=== PATIENT | male | born 2000 | race Caucasian/White ===

== ENCOUNTER 2021-12-30 09:45 | Emergency (ER) | payer OTHER, SELFPAY ==
--- NOTE | ~2021-12-30 | CT_ITS ---
EXAMINATION: CT abdomen pelvis w con DATE: 12/30/2021 11:36 INDICATION: Right lower quadrant abdominal pain, nausea and diarrhea. TECHNIQUE: Computed tomography (CT) of the abdomen and pelvis was performed with 100 mL Omnipaque-350 intravenous contrast. Automated exposure control and iterative reconstruction technique were employe d. The dose-length product was 335.05 mGy-cm. COMPARISON: None FINDINGS: Lung bases are clear. Heart size is normal. No pericardial or pleural effusion. Liver, gallbladder, s pleen, pancreas, bilateral adrenal glands and kidneys are normal. Focal wall thickening of the termin al ileum with mucosal hyperemia consistent with likely flare of reported known Crohn's disease. Remai nder of the bowels are unremarkable with no other wall thickening or dilation to suggest obstruction. No abscess or free intraperitoneal gas or fluid. Bladder is normal. No pathologically enlarged abdom inal or pelvic lymphadenopathy. Tiny fat-containing umbilical hernia. Relatively symmetric minimal to mild bilateral sacroiliitis most likely related to Crohn's disease. IMPRESSION: 1. Wall thickening and mucosal hyperemia at the terminal ileum consistent with flare of known Crohn's disease. No obstruction or findings to suggest bowel perforation. 2. Minimal to mild bilateral sacroiliitis likely related to Crohn's disease. Reviewed, dictated and finalized at location A. IMPRESSION: 1. Wall thickening and mucosal hyperemia at the terminal ileum consistent with flare of known Crohn's disease. No obstruction or findings to suggest bowel per foration. 2. Minimal to mild bilateral sacroiliitis likely related to Crohn's disease.
[2021-12-30 09:48] VITALS: BP 125/82; PULSE 98; RESP 17; TEMP 37.4; O2SAT 99
--- NOTE | 2021-12-30 10:15 | ED.GENADULT ---
HPI - General Adult General Chief complaint: Unspecified <VANI Odonnell Last Filed: 12/30/21 19:40> Stated complaint: flu-like symptoms <VANI Odonnell Last Filed: 12/30/21 19:40> Time Seen by Provider: 12/30/21 09:51 <VANI Odonnell Last Filed: 12/30/21 19:40> Source: patient <VANI Odonnell Last Filed: 12/30/21 19:40> Mode of arrival: ambulatory <VANI Odonnell Last Filed: 12/30/21 19:40> Limitations: no limitations <VANI Odonnell Last Filed: 12/30/21 19:40> History of Present Illness HPI narrative: Patient is a 21-year-old male who presents the ED with report of fever. Patient reports having fever for the past 4 days. He states he remembers exactly when he started feeling bad. T-max 101.8 at home. He has been taking Tylenol and ibuprofen with relief of fever. Patient does have history of Crohn's disease and takes Simponi for this. He states he was advised to come to the emergency department by his staffing associate and assistant at surgery. Patient also reports having a sore throat, nausea, diarrhea, lower abdominal pain, chills, sweats, and myalgias. He states he has been unable to eat or drink much. He denies any cough, congestion, rhinorrhea, vomiting, urinary symptoms. Patient is not vaccinated for COVID-19 or influenza. <Jeana Mcwilliams PA-C - Last Filed: 12/30/21 19:40> Related Data Home medications: Home Medications Medication Instructions Recorded Confirmed golimumab 100 mg/mL subcutaneous 50 mg SUB-Q MONTHLY 05/02/20 pen injector golimumab [Simponi] mg SUBCUT 12/30/21 <VANI Odonnell Last Filed: 12/30/21 19:40> Allergies/adverse reactions: Allergies Allergy/AdvReac Type Severity Reaction Status Date / Time infliximab [From Remicade] Allergy Severe andioedema Verified 12/30/21 10:00 <Jeana Mcwilliams PA-C - Last Filed: 12/30/21 19:40> Review of Systems Review of Systems: CONSTITUTIONAL: Reports fever, chills, and sweats. ENT: Reports sore throat. Denies rhinorrhea, congestion, or otalgia. CARDIOVASCULAR: Denies chest pain. RESPIRATORY: Denies cough or dyspnea. GASTROINTESTINAL: Reports lower abdominal pain, nausea, and diarrhea. Denies vomiting. GENITOURINARY: Denies dysuria or hematuria. MUSCULOSKELETAL: Reports myalgia. NEUROLOGIC: Denies headache, numbness, or weakness. <Jeana Mcwilliams PA-C - Last Filed: 12/30/21 19:40> All systems reviewed & are unremarkable except as noted in HPI and below <Jeana Mcwilliams PA-C - Last Filed: 12/30/21 19:40> PMFSH Past Medical History Medical History: Medical History Crohn's disease in remission <Jeana Mcwilliams PA-C - Last Filed: 12/30/21 19:40> Surgical History Surgical History: Surgical History (Updated 12/30/21 @ 10:19 by Jeana Mcwilliams PA-C) No pertinent past surgical history <Jeana Mcwilliams PA-C - Last Filed: 12/30/21 19:40> Family History Family History: Family History (Updated 09/15/19 @ 07:42 by Britta Willis [facility]) Grandparent Hypertension Sleep apnea Family history of CABG AAA (abdominal aortic aneurysm) Aorta disorder Diabetes mellitus Heart disease Leukemia Mother Lymphoma <Jeana Mcwilliams PA-C - Last Filed: 12/30/21 19:40> Social History Social History: Social History Smoking status: Never smoker Alcohol intake: never <Jeana Mcwilliams PA-C - Last Filed: 12/30/21 19:40> Exam Narrative: GENERAL: Mildly ill appearing, well-nourished, non-toxic, in no acute distress. HEAD: Normocephalic, atraumatic. EYES: EOMI, conjunctivae clear bilaterally. NOSE: Normal, no drainage THROAT: Pharynx clear, minimal erythema, no exudate. MMs dry. NECK: Supple. No adenopathy, no masses. RESPIRATORY: Airway patent, respirations nonlabored. Clear to auscultation bilaterally, no rales,
[2021-12-30 10:23] VITALS: RESP 18
[2021-12-30 10:26] LABS: Basophils Percent Auto 0.5 % (0.2-1.2); Hemoglobin 15.5 g/dL (14.0-18.0); Immature Granulocyte Absolute 0.01 K/mm3 (0.00-0.031); Immature Granulocyte Percent A 0.3 % (0-0.5); Lymphocytes Absolute Auto 0.95 K/mm3 (0.9-3.2); Lymphocytes Percent Auto 24.1 % (18.3-44.2); Mean Corpuscular Hemoglobin 29.5 pg (26-34); Mean Corpuscular Volume 89.4 fl (80-100); Mean Platelet Volume 8.9 fl (7.4-10.4); Monocytes Absolute Auto 0.7 K/mm3 (0.1-0.6); Monocytes Percent Auto 18.5 % (2.6-8.5); Neutrophils Absolute Auto 2.2 K/mm3 (1.3-6.7); Neutrophils Percent Auto 56.6 % (45.5-73.1); Platelet Count Result 184 k/mm3 (150-375); Red Blood Count 5.26 M/mm3 (4.6-6.20); Red Cell Distribution Width 12.1 % (11.5-14.5); White Blood Count 3.9 K/mm3 (4.5-10.0)
[2021-12-30] MEDS: SODIUM CHLORIDE 0.9% IV 1,000 ML 999 ML IV CONT ×2 (10:30→11:43)
[2021-12-30] MEDS: ONDANSETRON INJ 4 MG/2 ML VIAL IV PUSH (10:31)
[2021-12-30 10:35] LABS: Appearance Urine Clear (Clear); Bilirubin Urine 1+ (Negative); Blood Urine Negative (Negative); Color Urine Yellow (Yellow); Glucose Urine UA Negative (Negative); Ketones Urine 2+ mg/dL (Negative); Leukocyte Esterase Ur Negative LEU/UL (Negative); Nitrate Urine Negative (Negative); Protein Urine 1+ mg/dL (Negative); Specific Grav Ur >= 1.030 (1.001-1.035); Urobilinogen Urine 0.2 mg/dL (<2.0); pH Urine 5.5 (5.0-9.0)
[2021-12-30 10:38] LABS: Alanine Aminotransferase 18 U/L (4-50); Albumin Level 4.6 g/dL (3.5-5.1); Alkaline Phosphatase 65 U/L (38-126); Anion Gap 10 mmol/L (8-16); Aspartate Amino Transferase 35 U/L (17-59); Bilirubin,Total 0.4 mg/dL (0.2-1.3); Blood Urea Nitrogen 13 mg/dL (9-20); Calcium 8.7 mg/dL (8.4-10.2); Carbon Dioxide 27 mmol/L (22-30); Chloride 98 mmol/L (98-107); Estimated CRCL calculation 95 ml/min; Estimated Glomerular Filt Rate > 60; Glucose 86 mg/dL (65-110); Potassium 3.7 mmol/L (3.4-5.0); Sodium 135 mmol/L (137-145)
[2021-12-30 10:46] LABS: Add Urine Microscopic? YES; Mucus Urine Few /lpf; RBC Urine 0-2 /hpf (0-2); WBC Urine 0-3 /hpf
[2021-12-30 11:17] LABS: Influenza A QL RT-PCR Positive (Negative); Influenza B QL RT-PCR Negative (Negative); SARS-CoV-2 RNA PCR Negative
[2021-12-30 11:49] VITALS: BP 112/73; PULSE 57; RESP 14; TEMP 36.9; O2SAT 100
[2021-12-30 12:16] VITALS: BP 113/73; PULSE 65; RESP 17; O2SAT 100
== END 2021-12-30 12:17 | disposition home or self-care (01) ==
PROVIDERS: Physician Assistant; Emergency Provider Emergency Medicine; PCP Internal Medicine
DX: J10.1 Influenza due to other identified influenza virus with other respiratory manifestations (principal); K50.90 Crohn's disease, unspecified, without complications; Z20.822 Contact with and (suspected) exposure to COVID-19; Z28.310 Unvaccinated for COVID-19
CPT/HCPCS: 36415; 74177; 80053; 81001; 85025; 87502; 96361; 96374; 96375; 99284; C9803; J0131; J2405; J7030; Q9967; U0003; U0005